=== PATIENT | female | born 1995 | race Caucasian/White ===

== ENCOUNTER 2019-07-04 11:04 | Emergency (ER) | payer BC, OTHER ==
[2019-07-04] MEDS ORDERED: diphenhydrAMINE HCL 50 MG/ML VIAL IV ONE (11:27)
[2019-07-04] MEDS ORDERED: PROCHLORPERAZINE INJ 10 MG/2 ML VIAL IV ONE (11:27)
[2019-07-04] MEDS ORDERED: SODIUM CHLORIDE 0.9% 1000ML 1,000 ML IVS ONE (11:27)
[2019-07-04] MEDS ORDERED: DEXAMETHASONE INJ 10 MG/ML VIAL IV ONE (11:27)
[2019-07-04 12:06] VITALS: TEMP 99.2
--- NOTE | 2019-07-04 12:40 | ED.PDOC ---
History of Present Illness - General Chief Complaint: Headache Stated Complaint: migraine/vomiting Time Seen by Provider: 07/04/19 11:13 Source: patient, RN notes reviewed, Vital Signs reviewed, RN/MD Exam Limitations: no limitations - History of Present Illness Initial Comments: Patient is a 23 yo F with hx of migraines coming in with headache x 4-6 days. She denies any fevers, chills, vision changes, weakness, or numbness. She states that she took her medication for migraines without any relief today. She was nauseated today but did not have resolution with Phenegran. She states that the headache has been gradual in onset and not maximal in intensity upon onset. She notes that this feels like her previous migraines. Timing/Duration: 1 week Quality: moderate, constant, pressure Head Injury Location: global Recent Head Trauma: chronic headaches Allergies/Adverse Reactions: Allergies Ceftriaxone [From Rocephin] Allergy (Verified 07/04/19 12:02) Tramadol Allergy (Verified 07/04/19 12:02) Review of Systems - Review of Systems Constitutional: Denies: chills, fever, weakness EENTM: Denies: eye pain, blurred vision, tearing, double vision Respiratory: Denies: cough, short of breath Cardiology: Denies: chest pain Gastrointestinal/Abdominal: States: nausea. Denies: abdominal pain, vomiting Genitourinary: Denies: dysuria Musculoskeletal: Denies: neck pain Skin: Denies: rash Neurological: States: headache. Denies: numbness, paresthesia, weakness Past Medical History (General) - Patient Medical History Hx Asthma: Yes Hx Hypertension: Yes Hx Gastroesophageal Reflux: Yes Surgical History: appendectomy, other - Vaccination History Hx Tetanus, Diphtheria Vaccination: Yes Hx Influenza Vaccination: No Hx Pneumococcal Vaccination: No Family Medical History - Family History Father Hx Family Cancer: Yes Physical Exam - Physical Exam General Appearance: Alert, Comfortable, No apparent distress, Well Developed, Well Groomed, Well Hydrated, Well Nourished Eyes, Ears, Nose, Throat Exam: PERRL/EOMI Neck: non-tender, full range of motion, supple, normal inspection, trachea midline Cardiovascular/Chest: normal peripheral pulses, regular rate, rhythm, no edema, no gallop, no JVD, no murmur Respiratory: lungs clear, normal breath sounds, no respiratory distress, no accessory muscle use Gastrointestinal/Abdominal: normal bowel sounds, non tender, soft, no organomegaly, no pulsatile mass Extremity: normal range of motion Mental Status: alert, oriented x 3 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 Patient will be re-evaluated after treatment 07/04/19 12:45 Patient feeling better. She will be discharged home with plans for outpatient follow-up. Patient presents for evaluation of headache. This feels similar to her previous migraines. This headache was not maximal in intensity upon onset. She denies any weakness or vision changes. She has no focal neurologic deficits on examination. She was given a mgiraine cocktail with complete resolution. She denies any chance that she could be and is not sexually active. Therefore, she was also given Decadron to prevent rebound headache. She will be discharged home with plans for outpatient follow-up. Departure - Departure Clinical Impression: Migraine Qualifiers: Migraine type: without aura Status migrainosus presence: without status migrainosus Intractability: not intractable Qualified Code(s): G43.009 - Migraine without aura, not intractable, without status migrainosus Time of Disposition: 12:39 Disposition: Discharge to Home or Self Care Condition: Good Departure Forms: ED Discharge - Pt. Copy, Patient Portal Self Enrollment Instructions: DI for Headache Diet: resume usual diet Activity: increase activity as tolerated Comments: Mahin Sousa D.O. Ana Luisa #[phone]
[2019-07-04 12:53] VITALS: BP 121/77; O2SAT 99
== END 2019-07-04 13:25 | disposition home or self-care (01) ==
LOC: ER 11:04
DX: G43.009 Migraine without aura, not intractable, without status migrainosus (principal); J45.909 Unspecified asthma, uncomplicated; I10 Essential (primary) hypertension; K21.9 Gastro-esophageal reflux disease without esophagitis; Z88.1 Allergy status to other antibiotic agents; Z88.5 Allergy status to narcotic agent
CPT/HCPCS: J0780; J1100; J1200; J7030

== ENCOUNTER 2019-07-22 09:42 | Emergency (ER) | payer BC, OTHER ==
[2019-07-22] MEDS ORDERED: SODIUM CHLORIDE 0.9% 1000ML 1,000 ML IVS ONE (10:02)
[2019-07-22] MEDS ORDERED: ONDANSETRON INJ 4 MG/2 ML VIAL IV ONE (10:02)
[2019-07-22] MEDS ORDERED: FAMOTIDINE IV PREMIX 20 MG in PREMIX BAG 1 BAG IVPB ONE (10:02)
--- NOTE | 2019-07-22 10:27 | ED.PDOC ---
History of Present Illness - General Chief Complaint: Abdominal Pain Time Seen by Provider: 07/22/19 10:00 Information Source: patient, RN notes reviewed, Vital Signs reviewed, family Exam Limitations: no limitations - History of Present Illness Initial Comments: Reports history of anxiety on Xanax. Abdominal Pain Onset Location: generalized abdomen Pain Radiation: flank Quality: moderate Timing/Duration: 4-6 hours Improving Factors: nothing Worsening Factors: nothing Associated Symptoms: back pain, chest pain, diarrhea, nausea/vomiting, shortness of breath Review of Systems - Review of Systems Constitutional: States: no symptoms reported EENTM: States: no symptoms reported Respiratory: States: see HPI Cardiology: States: see HPI Gastrointestinal/Abdominal: States: see HPI Genitourinary: States: no symptoms reported Musculoskeletal: States: no symptoms reported Skin: States: no symptoms reported Neurological: States: no symptoms reported Hematologic/Lymphatic: States: no symptoms reported Past Medical History (General) - Patient Medical History Hx Asthma: Yes Hx Hypertension: Yes Hx Gastroesophageal Reflux: Yes - Vaccination History Hx Tetanus, Diphtheria Vaccination: Yes Hx Influenza Vaccination: No Hx Pneumococcal Vaccination: No Family Medical History - Family History Father Hx Family Cancer: Yes Physical Exam - Physical Exam General Appearance: Alert, Anxious Eyes, Ears, Nose, Throat Exam: normal ENT inspection Neck: full range of motion Respiratory: chest non-tender, lungs clear Cardiovascular/Chest: normal peripheral pulses, regular rate, rhythm Peripheral Pulses: No deficit Gastrointestinal/Abdominal: normal bowel sounds, non tender, soft, no organomegaly Back Exam: normal inspection Extremity: normal range of motion 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 We reviewed her CXR, trop, Ddimer, EKG ruling out PE and ACS. Her labs were remarkable for hypokalemia and hematuria. We discussed that given her normal WBC, normal VS, and improving pain after zofran, pepcid, fluids, to hold off on further imaging. She agreed to be discharged with PCP follow up and ER precautions given for severe pain, fever, distress. - EKG/XRAY/CT EKG: Sinus, no ST T wave changes Departure - Departure Clinical Impression: Chest pain, Abdominal pain, Hypokalemia, Hematuria Time of Disposition: 11:59 Disposition: Discharge to Home or Self Care Condition: Fair Departure Forms: ED Discharge - Pt. Copy, Patient Portal Self Enrollment Instructions: DI for Abdominal Pain-Adult Diet: resume usual diet Activity: increase activity as tolerated Prescriptions: Ondansetron Odt [Zofran ODT] 4 mg PO Q6HR 10 Days #20 tab Home Medications: Ambulatory Orders Ondansetron Odt [Zofran ODT] 4 mg PO Q6HR 10 Days #20 tab 07/22/19
[2019-07-22] MEDS ORDERED: FAMOTIDINE IV PREMIX 50 ML IVPB ONE (10:49)
[2019-07-22] MEDS ORDERED: POTASSIUM CHLORIDE 20 MEQ TAB PO ONE (11:14)
[2019-07-22] MEDS ORDERED: KETOROLAC TROMETHAMINE INJ 30 MG/ML VIAL IV ONE (11:26)
--- NOTE | 2019-07-22 11:47 | RAD ---
EXAM DESCRIPTION: Chest,1 View CLINICAL HISTORY: 23 years Female, chest pain COMPARISON: None. TECHNIQUE: Single frontal view of the chest. IMPRESSION: Normal size cardiac silhouette. No lobar or masslike consolidation. No pleural effusion or pneumothorax. Chronic right rib fractures. Electronically signed by: Alvarado Phillips MD 07/22/2019 11:45 AM CDT
[2019-07-22 16:21] VITALS: BP 119/76; TEMP 97; O2SAT 93
== END 2019-07-22 12:50 | disposition home or self-care (01) ==
LOC: ER 09:42
DX: R07.9 Chest pain, unspecified (principal); R10.9 Unspecified abdominal pain; E87.6 Hypokalemia; R31.9 Hematuria, unspecified; R11.2 Nausea with vomiting, unspecified; R19.7 Diarrhea, unspecified; M54.9 Dorsalgia, unspecified; R06.02 Shortness of breath; F41.9 Anxiety disorder, unspecified; J45.909 Unspecified asthma, uncomplicated; I10 Essential (primary) hypertension; K21.9 Gastro-esophageal reflux disease without esophagitis; Z79.899 Other long term (current) drug therapy
CPT/HCPCS: 36415; 71045; 80053; 81001; 84484; 84703; 85025; 85379; 87210; 87491; 87591; 93005; J1885; J2405; J3490; J7030

== ENCOUNTER 2019-08-19 17:51 | Emergency (ER) | payer BC, OTHER ==
[2019-08-19 19:20] VITALS: O2SAT 100
--- NOTE | 2019-08-19 19:27 | RAD ---
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 TECHNIQUE: Frontal, lateral and oblique views of the fingers of the left hand. COMPARISON: No relevant prior studies available. FINDINGS: BONES/JOINTS: No acute fracture seen. Normal bony alignment. SOFT TISSUES: No acute soft tissue abnormality identified. No radiopaque foreign body seen. IMPRESSION: - No acute fracture seen. Thank you for allowing us to participate in the care of this patient. Electronically signed by: Lv Osuna MD 08/19/2019 7:26 PM [facility]
--- NOTE | 2019-08-19 19:39 | ED.PDOC ---
History of Present Illness - General Chief Complaint: Upper Extremity Injury Stated Complaint: Injury to L ring finger Time Seen by Provider: 08/19/19 19:29 Source: patient Exam Limitations: no limitations - History of Present Illness Initial Comments: 23 yo F who presents for L ring and pinky finger pain s/p getting them caught in a baking mixer. She thought she had unplugged it however she had not and when trying to take the mixers off it turned on. Denies pain or injury elsewhere. Denies weakness, numbness. Allergies/Adverse Reactions: Allergies Ceftriaxone [From Rocephin] Allergy (Verified 08/19/19 19:20) Tramadol Allergy (Verified 08/19/19 19:20) Home Medications: Ambulatory Orders Ondansetron Odt [Zofran ODT] 4 mg PO Q6HR 10 Days #20 tab 07/22/19 Review of Systems - Review of Systems Musculoskeletal: States: other - L RF and LF pain Neurological: Denies: numbness, weakness Past Medical History (General) - Patient Medical History Hx Stroke: No Hx Asthma: Yes Hx Congestive Heart Failure: No Hx Hypertension: Yes Hx Diabetes: No Hx Gastroesophageal Reflux: Yes Hx MRSA: No - Vaccination History Hx Tetanus, Diphtheria Vaccination: Yes Hx Influenza Vaccination: No Hx Pneumococcal Vaccination: No - Social History Hx Tobacco Use: No Hx Alcohol Use: Yes - Occasional use - Female History Patient is a Female of Child Bearing Age (10 -59 yrs old): Yes Patient : No Family Medical History - Family History Father Living Status: Still Living Hx Family Cancer: Yes Physical Exam - Physical Exam General Appearance: Alert, No apparent distress, Well Developed, Well Nourished Hand Exam: normal inspection - L LF and RF with mild TTP and decreased ROM 2/2 pain. No swelling, deformity, ecchymosis, nail involvement. 2+ pulses, cap refill <2sec, NVID. Neuro/Tendon: normal sensation, normal motor functions, normal tendon functions Mental Status: alert, oriented x 3 Skin Exam: normal color, warm/dry Progress - Progress Progress: I have explained and reviewed all results with the pt. I explained that emergent conditions may arise and to return to the ER for new, worsening, or any persistent conditions. I've explained the importance of f/u for recheck. All questions and concerns addressed at this time. Pt understands and agrees with plan. Pt well appearing, NAD, is stable for discharge. 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 TECHNIQUE: Frontal, lateral and oblique views of the fingers of the left hand. COMPARISON: No relevant prior studies available. FINDINGS: BONES/JOINTS: No acute fracture seen. Normal bony alignment. SOFT TISSUES: No acute soft tissue abnormality identified. No radiopaque foreign body seen. IMPRESSION: - No acute fracture seen. Thank you for allowing us to participate in the care of this patient. Electronically signed by: Lv Osuna MD 08/19/2019 7:26 PM SAMPLE PROCESSOR Departure - Departure Clinical Impression: Finger sprain Qualifiers: Encounter type: initial encounter Finger: unspecified finger Qualified Code(s): S63.619A - Unspecified sprain of unspecified finger, initial encounter Time of Disposition: 19:40 Disposition: Discharge to Home or Self Care Health Concerns: Condition: stable Departure Forms: ED Discharge - Pt. Copy, Patient Portal Self Enrollment Instructions: DI for Finger Sprain Home Medications: Ambulatory Orders Ondansetron Odt [Zofran ODT] 4 mg PO Q6HR 10 Days #20 tab 07/22/19 Comments: Follow up: [facility] As needed, if symptoms worsen. Your Primary Care Physician Make appointment, two days, for follow up
[2019-08-19 19:51] VITALS: BP 134/81; TEMP 98
== END 2019-08-19 19:50 | disposition home or self-care (01) ==
LOC: ER 17:51
DX: S63.619A Unspecified sprain of unspecified finger, initial encounter (principal); I10 Essential (primary) hypertension; K21.9 Gastro-esophageal reflux disease without esophagitis; J45.909 Unspecified asthma, uncomplicated; W29.0XXA Contact with powered kitchen appliance, initial encounter; Y92.9 Unspecified place or not applicable; Z88.1 Allergy status to other antibiotic agents; Z88.5 Allergy status to narcotic agent

== ENCOUNTER 2019-10-11 03:44 | Emergency (ER) | payer BC, OTHER ==
--- NOTE | 2019-10-11 04:00 | ED.PDOC ---
History of Present Illness - General Chief Complaint: Fever Time Seen by Provider: 10/11/19 03:53 Source: patient, RN notes reviewed, Vital Signs reviewed Exam Limitations: no limitations Additional Information: this is a 23-year-old who presents to the emergency Depart with complaints of fever for the past 5 days. She was diagnosed with the flu and started on Tamiflu. She reports chills and productive cough as well as sore throat. She did not have a flu shot this year.she denies any neurologic symptomatology. She has not had any diarrhea but has had some vomiting. She has 2 young children at home as well. Review of Systems - Review of Systems Constitutional: States: chills, fever, malaise EENTM: States: throat pain Respiratory: States: cough. Denies: short of breath, wheezing Cardiology: States: no symptoms reported Gastrointestinal/Abdominal: States: nausea, vomiting. Denies: abdominal pain, constipation, diarrhea Genitourinary: States: no symptoms reported Musculoskeletal: States: muscle pain Skin: States: no symptoms reported Neurological: States: headache. Denies: numbness, paresthesia, seizure Endocrine: States: no symptoms reported All other Systems: Reviewed and Negative Past Medical History (General) - Patient Medical History Hx Stroke: No Hx Asthma: Yes Hx Congestive Heart Failure: No Hx Hypertension: Yes Hx Diabetes: No Hx Gastroesophageal Reflux: Yes Hx MRSA: No - Vaccination History Hx Tetanus, Diphtheria Vaccination: Yes Hx Influenza Vaccination: No Hx Pneumococcal Vaccination: No - Social History Hx Tobacco Use: No Hx Alcohol Use: Yes - Occasional use - Female History Patient : No Family Medical History - Family History Father Living Status: Still Living Hx Family Cancer: Yes Physical Exam - Physical Exam General Appearance: Alert, No apparent distress, Ill Appearing Eye Exam: bilateral normal ENT Exam: nasal congestion, nasal drainage, pharyngeal erythema, other - honey crusted lesions at nares Neck: non-tender, full range of motion, supple, normal inspection, trachea midline Respiratory: chest non-tender, lungs clear, normal breath sounds, no respiratory distress, no accessory muscle use, respiratory distress Cardiovascular/Chest: normal peripheral pulses, no edema, no gallop, no JVD, no murmur, JVD, tachycardia Gastrointestinal/Abdominal: normal bowel sounds, non tender, soft, no organomegaly, no pulsatile mass Extremity: normal range of motion, non-tender, normal inspection, no pedal edema, no calf tenderness 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 Patient will have laboratory evaluation performed. We will hydrate her as well. We'll go ahead and give anti-emetics. We'll treat her headache as well. We'll test her once again for the flu and strep. We'll also check a chest x-ray to make sure that she has not developed pneumonia. 10/11/19 05:22 CXR is wnl. Labs still pending. 10/11/19 05:30 Pt is feeling better. Discussed results. All questions answered. - Results/Orders Results/Orders: Negative flu a and b Departure - Departure Clinical Impression: Impetigo UTI (urinary tract infection) Qualifiers: Urinary tract infection type: acute cystitis Hematuria presence: with hematuria Qualified Code(s): N30.01 - Acute cystitis with hematuria Fever Qualifiers: Fever type: unspecified Qualified Code(s): R50.9 - Fever, unspecified Pharyngitis Qualifiers: Pharyngitis/tonsillitis etiology: unspecified etiology Qualified Code(s): J02.9 - Acute pharyngitis, unspecified Time of Disposition: 05:38 Disposition: Discharge to Home or Self Care Condition: Good Departure Forms: ED Discharge - Pt. Copy, Patient Portal Self Enrollment Instructions: DI for Fever (Symptom) -- Adult Referrals: Jah Vital MD [Primary Care Provider] - 1-2 Weeks Prescriptions: Ciprofloxacin [Cipro] 250 mg PO Q12H #14 tablet Mupirocin 2 % Oint [Bactroban Oint] 1 applic TOP BID 5 Days #10 appli Home Medications: Ambulatory Orders Alprazolam 0.5 mg PO PRN 10/11/19 Ciprofloxacin [Cipro] 250 mg PO Q12H #14 tablet 10/11/19 Mupirocin 2 % Oint [Bactroban Oint] 1 applic TOP BID 5 Days #10 appli 10/11/19 Norethindrone Acetate-Ethinyl [Lo Loestrin Fe 1 mg-10 Mcg / 10 Mcg] 1 tablet PO DAILY 10/11/19 Additional Instructions: take medications as prescribed. Use Bactroban ointment within the nares twice a day. Take supplemental potassium for the next three days. Encouraged fluid hydration. If any worsening symptoms return to ER or follow up with PCP.
[2019-10-11] MEDS ORDERED: KETOROLAC TROMETHAMINE INJ 30 MG/ML VIAL IV ONE (04:03)
[2019-10-11] MEDS ORDERED: SODIUM CHLORIDE 0.9% 1000ML 1,000 ML IVS ONE (04:03)
[2019-10-11] MEDS ORDERED: ONDANSETRON INJ 4 MG/2 ML VIAL IV ONE (04:03)
[2019-10-11] MEDS ORDERED: CIPROFLOXACIN 500 MG TAB PO ONE (05:24)
[2019-10-11] MEDS ORDERED: POTASSIUM CHLORIDE 20 MEQ TAB PO ONE (05:36)
[2019-10-11 05:49] VITALS: BP 138/86; TEMP 98.9; O2SAT 100
--- NOTE | 2019-10-11 06:19 | RAD ---
EXAM: Single view chest. INDICATION: Fever, cough. COMPARISON: Chest x-ray: 07/22/2019. FINDINGS: Cardiac silhouette: Unremarkable. Yulia: Unremarkable. Lobar consolidation: None. Pleural effusion: None. Pneumothorax: None. Other: None. Bones: Old healed right-sided rib fracture is noted. Other: None. IMPRESSION: 1. No acute cardiopulmonary process. Electronically signed by: Jack Vargas MD 10/11/2019 6:14 AM [facility]
== END 2019-10-11 05:49 | disposition home or self-care (01) ==
LOC: ER 03:44
DX: N30.01 Acute cystitis with hematuria (principal); L01.00 Impetigo, unspecified; J02.9 Acute pharyngitis, unspecified; R11.2 Nausea with vomiting, unspecified; K21.9 Gastro-esophageal reflux disease without esophagitis; J45.909 Unspecified asthma, uncomplicated; I10 Essential (primary) hypertension
CPT/HCPCS: 71045; 80053; 81001; 81025; 83605; 85025; 87040; 87070; 87086; 87502; 87880; J1885; J2405; J7030

== ENCOUNTER → 2019-11-02 | Outpatient (CLI) | payer BC, OTHER | LOC: GMA MATASK 14:26 | PROVIDERS: ATTEND Family Medicine | DX: G43.109 Migraine with aura, not intractable, without status migrainosus (principal) ==

== ENCOUNTER → 2019-12-16 | Outpatient (CLI) | payer BC, OTHER ==
--- NOTE | 2019-12-16 14:07 | US ---
EXAM DESCRIPTION: Pelvic,Non-OB: Ultrasound. 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 TECHNIQUE: Transcutaneous scanning through the urine filled bladder. Endovaginal scanning. Loco-scale and Doppler modes. FINDINGS: Uterus 6.7 x 4.7 x 3.4 cm. 55.5 mL. Endometrium 2.3 mm.. Myometrium heterogeneous. Uterus not retroverted. Cervix unremarkable. Cul-de-sac: Small amount of free fluid.. Right ovary 2.6 x 1.8 x 1.2 cm. 2.9 mL. Normal color Doppler vascularity. Small follicles but no cysts. No adnexal mass or free fluid. Left ovary 2.4 x 0.9 x 0.8 cm. Almost 1 mL. Normal color Doppler vascularity. No follicles or cysts. No adnexal mass or free fluid. IMPRESSION: 1. Small amount of fluid in the cul-de-sac. Uterus and ovaries normal in size position and vascularity. Electronically signed by: Marck Dowd MD 12/16/2019 2:05 PM CDT
== END ==
LOC: US 12:44
PROVIDERS: ATTEND Physician Assistant
DX: R18.8 Other ascites (principal)

== ENCOUNTER 2019-12-27 10:44 | Emergency (ER) | payer BC, OTHER ==
[2019-12-27] MEDS ORDERED: SODIUM CHLORIDE 0.9% (FLUSH) 10 ML SYG IV PRN (11:02)
[2019-12-27] MEDS ORDERED: SODIUM CHLORIDE 0.9% 1000ML 1,000 ML IVS PRN (11:02)
[2019-12-27] MEDS ORDERED: ONDANSETRON INJ 4 MG/2 ML VIAL IV ONE (11:02)
[2019-12-27] MEDS ORDERED: DICYCLOMINE HCL INJ 20 MG/2 ML AMP IM ONE (11:03)
[2019-12-27] MEDS ORDERED: MORPHINE SULFATE INJ 10 MG/ML VIAL IV ONE (11:04)
--- NOTE | 2019-12-27 12:40 | CT ---
EXAM DESCRIPTION: Abdomen/Pelvis w/Contrast CLINICAL HISTORY: 24 years Female lower abdominal pain COMPARISON: None. TECHNIQUE: Contiguous axial images obtained through the abdomen and pelvis following IV contrast. Reformatted images obtained. This exam was performed according to our department optimization program which includes automated exposure control, adjustment of the mA and/or kv according to patient size and/or use of iterative reconstruction technique. FINDINGS: The liver appears unremarkable. Spleen is within normal limits. There appears to be a minute cyst in the superior pole of the spleen. Pancreas is unremarkable. No adrenal masses. The kidneys appear unremarkable. No hydronephrosis. The gallbladder is visualized. No aneurysmal dilatation of the aorta. No bowel obstruction. The appendix is absent. Trace free fluid which is nonspecific Question incomplete distention of the colon and loops of distal small bowel versus early enterocolitis. Recommend clinical correlation. This finding can also be seen with incomplete distention. IMPRESSION: Question mild wall thickening in the colon and in some loops of small bowel within the pelvis versus incomplete distention. Possibility of early enterocolitis is not excluded. Recommend clinical correlation with patient's symptoms. Trace fluid in the pelvis nonspecific in a patient of this age Electronically signed by: Adelita Maharaj MD 12/27/2019 12:39 PM CDT
--- NOTE | 2019-12-27 12:46 | ED.PDOC ---
History of Present Illness - General Chief Complaint: Abdominal Pain Stated Complaint: left sided abd pain Time Seen by Provider: 12/27/19 11:02 - History of Present Illness Initial Comments: c/o lower abdominal pain with intermittent vaginal bleeding since 10 days , went to PCP did sonogram and was told that she has ruptured ovarian cyst on the L . Since yesterday pain is getting worse , its sharp non radiating associated with some nausea , no fever or chills Review of Systems - Review of Systems Constitutional: States: no symptoms reported EENTM: States: no symptoms reported Respiratory: States: no symptoms reported Cardiology: States: no symptoms reported Gastrointestinal/Abdominal: States: see HPI Genitourinary: States: no symptoms reported Musculoskeletal: States: no symptoms reported Skin: States: no symptoms reported Neurological: States: no symptoms reported Endocrine: States: no symptoms reported Hematologic/Lymphatic: States: no symptoms reported Past Medical History (General) - Patient Medical History Hx Seizures: No Hx Stroke: No Hx Dementia: No Hx Asthma: Yes Hx of COPD: No Hx Cardiac Disorders: No Hx Congestive Heart Failure: No Hx Pacemaker: No Hx Hypertension: Yes Hx Diabetes: No Hx Gastroesophageal Reflux: Yes Hx Renal Disease: No Hx Cancer: No Hx of HIV: No Hx Hepatitis C: No Hx MRSA: No Surgical History: appendectomy - Vaccination History Hx Tetanus, Diphtheria Vaccination: Yes Hx Influenza Vaccination: No Hx Pneumococcal Vaccination: No - Social History Hx Tobacco Use: No Hx Alcohol Use: Yes - Occasional use - Female History Patient is a Female of Child Bearing Age (10 -59 yrs old): Yes - on control Patient : No Family Medical History - Family History Father Living Status: Still Living Hx Family Cancer: Yes Physical Exam - Physical Exam General Appearance: Alert, Comfortable Eyes, Ears, Nose, Throat Exam: PERRL/EOMI Neck: non-tender, full range of motion, supple, normal inspection Respiratory: chest non-tender, lungs clear, normal breath sounds, no respiratory distress, no accessory muscle use Cardiovascular/Chest: regular rate, rhythm, no edema, no gallop, no JVD, no murmur Gastrointestinal/Abdominal: soft, tenderness - in pelvic area Back Exam: normal inspection, no CVA tenderness, no vertebral tenderness Extremity: normal range of motion, non-tender, normal inspection, no pedal edema Neurologic: no motor/sensory deficits, alert, normal mood/affect, oriented x 3 Skin Exam: normal color, warm/dry Lymphatic: no adenopathy Progress - Results/Orders Results/Orders: 12/27/19 11:02 Sodium Chloride 0.9% (Flush) [Saline Flush Syringe] 10 ml IV PRN PRN Sodium Chloride 0.9% 1000ML [Ns 1000 ml] 1,000 ml IVS .QD 12/27/19 11:03 Hold Metformin x 48Hrs [id number] Laboratory Results WBC 6.2 K/mm3 (4.8-10.8) 12/27/19 11:21 RBC 4.94 M/mm3 (4.20-5.40) 12/27/19 11:21 Hgb 13.2 gm/dL (12.0-16.0) 12/27/19 11: Hct 39.8 % (36.0-47.0) 12/27/19 11:21 MCV 80.6 fl (81.0-99.0) L 12/27/19 11: MCH 26.7 pg (27.0-31.0) L 12/27/19 11:21 MCHC 33.1 g/dL (33.0-37.0) 12/27/19 11: RDW 14.6 % (11.5-14.5) H 12/27/19 11:21 Plt Count 208 K/mm3 (130-400) 12/27/19 11:21 MPV 8.5 fl (7.40-10.4) 12/27/19 11:21 Absolute Neuts (auto) 4.70 K/uL (1.8-6.8) 12/27/19 11: Absolute Lymphs (auto) 1.10 K/uL (1.0-3.4) 12/27/19 11:21 Absolute Monos (auto) 0.30 K/uL (0.2-0.8) 12/27/19 11: Absolute Eos (auto) 0.00 K/uL (0.0-0.4) 12/27/19 11: Absolute Basos (auto) 0.00 K/uL (0.0-0.1) 12/27/19 11:21 Neutrophils % 77.0 % (42.0-78.0) 12/27/19 11:21 Lymphocytes % 17.9 % (20.0-50.0) L 12/27/19 11:21 Monocytes % 4.7 % (2.0-9.0) 12/27/19 11:21 Eosinophils % 0.1 % (1.0-5.0) L 12/27/19 11:21 Basophils % 0.3 % (0.0-2.0) 12/27/19 11:21 Sodium 139 mmol/L (135-145) 12/27/19 11:21 Potassium 3.8 mmol/L (3.6-5.0) 12/27/19 11:21 Chloride 109 mmol/L (101-111) 12/27/19 11:21 Carbon Dioxide 21 mmol/L (21-31) 12/27/19 11:21 Anion Gap 12.8 (12-18) 12/27/19 11:21 BUN 11 mg/dL (7-18) 12/27/19 11:21 Creatinine 0.60 mg/dL (0.6-1.3) 12/27/19 11:21 BUN/Creatinine Ratio 18.3 (10-20) 12/27/19 11:21 Random Glucose 96 mg/dL (70-105) 12/27/19 11:21 Serum Osmolality 276.8 mOsm/L (275-295) 12/27/19 11:21 Calcium 9.1 mg/dL (8.4-10.2) 12/27/19 11:21 Total Bilirubin 0.5 mg/dL (0.2-1.0) 12/27/19 11:21 Direct Bilirubin 0.1 mg/dL (0-0.2) 12/27/19 11:21 Indirect Bilirubin 0.4 mg/dL (0.2-0.8) 12/27/19 11:21 AST 19 IU/L (10-42) 12/27/19 11:21 ALT 13 IU/L (10-60) 12/27/19 11:21 Alkaline Phosphatase 34 IU/L (42-121) L 12/27/19 11:21 Serum Total Protein 7.0 gm/dL (6.4-8.2) 12/27/19 11:21 Albumin 4.2 g/dl (3.2-5.5) 12/27/19 11:21 Lipase 46 U/L (22-51) 12/27/19 11:21 Serum HCG, Qual Negative (NEGATIVE) 12/27/19 11:21 Urine Color Yellow (Yellow) 12/27/19 11:06 Urine Appearance Clear (Clear) 12/27/19 11:06 Urine pH 6.0 (4.5-7.8) 12/27/19 11:06 Ur Specific [place] >= 1.030 (1.005-1.030) 12/27/19 11:06 Urine Protein 30 mg/dL 12/27/19 11:06 Urine Glucose (UA) Negative mg/dL (Negative) 12/27/19 11:06 Urine Ketones Trace mg/dL (NEGATIVE) 12/27/19 11:06 Urine Blood Negative (Negative) 12/27/19 11:06 Urine Nitrite Negative 12/27/19 11:06 Urine Bilirubin Negative (NEGATIVE) 12/27/19 11:06 Urine Urobilinogen 0.2 mg/dL (0.2-1.0) 12/27/19 11:06 Ur Leukocyte Esterase Negative (Negative) 12/27/19 11:06 Urine RBC 0 /hpf 12/27/19 11:06 Urine WBC 0 /hpf 12/27/19 11:06 Ur Epithelial Cells 5-10 /hpf 12/27/19 11:06 Urine Bacteria Rare 12/27/19 11:06 Departure - Departure Clinical Impression: Abdominal pain, Pelvic pain Time of Disposition: 12:47 Disposition: Discharge to Home or Self Care Condition: Good Departure Forms: ED Discharge - Pt. Copy, Patient Portal Self Enrollment Instructions: DI for Abdominal Pain-Adult Diet: resume usual diet Activity: increase activity as tolerated, walking as tolerated Referrals: Jah Vital MD [Primary Care Provider] - 1-2 Weeks Prescriptions: Dicyclomine HCl [Bentyl] 20 mg PO Q6H #12 tab Ondansetron Tab [Zofran Tab] 4 mg PO TID #12 tab Home Medications: Ambulatory Orders RX: Norethindrone Acetate-Ethinyl [Lo Loestrin Fe 1 mg-10 Mcg / 10 Mcg] 1 tablet PO DAILY 10/11/19 Dicyclomine HCl [Bentyl] 20 mg PO Q6H #12 tab 12/27/19 Ondansetron Tab [Zofran Tab] 4 mg PO TID #12 tab 12/27/19 Additional Instructions: Return to ER if symptoms gets worse
[2019-12-27 13:26] VITALS: O2SAT 100
[2019-12-27 13:56] VITALS: BP 126/93; TEMP 97.1
== END 2019-12-27 13:56 | disposition home or self-care (01) ==
LOC: ER 10:44
DX: R10.2 Pelvic and perineal pain (principal); R10.30 Lower abdominal pain, unspecified; K21.9 Gastro-esophageal reflux disease without esophagitis; I10 Essential (primary) hypertension; J45.909 Unspecified asthma, uncomplicated; Z90.49 Acquired absence of other specified parts of digestive tract; Z87.42 Personal history of other diseases of the female genital tract
CPT/HCPCS: 36415; 74177; 80048; 80076; 81001; 83690; 84703; 85025; J0500; J2270; J2405; J7030

== ENCOUNTER 2020-06-05 23:27 | Emergency (ER) | payer BC, OTHER ==
[2020-06-05 23:43] VITALS: O2SAT 99
[2020-06-05] MEDS ORDERED: ALUM & MAG HYDROX-SIMETHICONE 30 ML, LIDOCAINE VISCOUS 2% 15 ML PO ONE ×2 (23:52)
[2020-06-05] MEDS ORDERED: ONDANSETRON ODT 8 MG TAB SL ONE (23:52)
--- NOTE | 2020-06-06 00:03 | ED.PDOC ---
History of Present Illness - General Chief Complaint: Problem Stated Complaint: back pain, low abd, pain to void Time Seen by Provider: 06/05/20 23:40 Source: patient Exam Limitations: no limitations - History of Present Illness Initial Comments: The patient is a 24-year-old female presents emergency room secondary to stomach upset today. Patient was started on Bactrim 3 days ago to continue her course of treatment for her urinary tract infection and pyelonephritis. The patient had already completed 9 days of an IV and then oral antibiotic prior to that. The patient saw her primary care doctor had a urinalysis done at that time and started the antibiotic. We do actually have the urine culture results here today and it does show that she does have a urinary tract infection with E. coli that is resistant to Bactrim. It does show sensitivities to cephalosporins, particularly third-generation cephalosporins. The patient does have some history of mild chronic GI upset. The patient is still having some mild frequency and mild abdominal cramping. No blood or bile in the vomitus. No real focal abdominal pain. She reports that the pyelonephritis was in the right kidney during her hospitalization. The patient had apparently tolerated Keflex well even though she reports that she had a Rocephin allergy. Timing/Duration: unsure Severity: moderate Improving Factors: nothing Worsening Factors: nothing Associated Symptoms: malaise, nausea/vomiting Allergies/Adverse Reactions: Allergies Ceftriaxone [From Rocephin] Allergy (Verified 10/11/19 04:07) Hydrocodone Allergy (Verified 10/11/19 04:07) Tramadol Allergy (Verified 10/11/19 04:07) Home Medications: Ambulatory Orders Norethindrone Acetate-Ethinyl [Lo Loestrin Fe 1 mg-10 Mcg / 10 Mcg] 1 tablet PO DAILY 10/11/19 Dicyclomine HCl [Bentyl] 20 mg PO Q6H #12 tab 12/27/19 Ondansetron Tab [Zofran Tab] 4 mg PO TID #12 tab 12/27/19 Cefixime [Suprax] 400 mg PO DAILY #10 cap 06/06/20 Review of Systems - Review of Systems Constitutional: States: malaise EENTM: States: no symptoms reported Respiratory: States: no symptoms reported Cardiology: States: no symptoms reported Gastrointestinal/Abdominal: States: no symptoms reported Genitourinary: States: see HPI Musculoskeletal: States: no symptoms reported Skin: States: no symptoms reported Neurological: States: no symptoms reported Endocrine: States: no symptoms reported All other Systems: No Change from Baseline Past Medical History (General) - Patient Medical History Hx Seizures: No Hx Stroke: No Hx Dementia: No Hx Asthma: Yes Hx of COPD: No Hx Cardiac Disorders: No Hx Congestive Heart Failure: No Hx Pacemaker: No Hx Hypertension: Yes Hx Diabetes: No Hx Gastroesophageal Reflux: Yes Hx Renal Disease: No Hx Cancer: No Hx of HIV: No Hx Hepatitis C: No Hx MRSA: No Surgical History: appendectomy, tonsillectomy - Vaccination History Hx Tetanus, Diphtheria Vaccination: Yes Hx Influenza Vaccination: No Hx Pneumococcal Vaccination: No - Social History Hx Tobacco Use: No Hx Alcohol Use: Yes - Occasional use - Female History Patient : No Family Medical History - Family History Father Living Status: Still Living Hx Family Cancer: Yes Physical Exam - Physical Exam General Appearance: Alert, No apparent distress Eye Exam: bilateral normal Ears, Nose, Throat: hearing grossly normal, normal pharynx Neck: full range of motion Respiratory: lungs clear, normal breath sounds, no respiratory distress, no accessory muscle use Cardiovascular/Chest: normal peripheral pulses, regular rate, rhythm, no edema Peripheral Pulses: radial,right: 2+, radial,left: 2+ Gastrointestinal/Abdominal: non tender, soft Rectal Exam: deferred Back Exam: no CVA tenderness, no vertebral tenderness Extremity: normal range of motion, non-tender, normal inspection, no pedal edema, normal capillary refill Neurologic: cell tester II-XII nml as tested, alert, normal mood/affect, oriented x 3 Skin Exam: normal color Comments: Vital Signs - 24 hr 06/05/20 23:35 Temperature 98.4 F Pulse Rate [ 89 left] Respiratory 18 Rate Blood Pressure 127/81 [Left Arm] O2 Sat by Pulse 99 Oximetry Progress - Progress Progress: 06/06/20 00:05 The patient is a 24-year-old female presented emergency room secondary to GI upset likely due to the Bactrim. The urinary tract infection is growing out E. coli resistant to the Bactrim so this medication will be discontinued. Based upon sensitivities, the patient is going to be placed on Suprax 400 mg daily for the next 10 days. Additionally she will be written for Zofran for as needed use to control any nausea or vomiting and Carafate for the next week or so to help reduce stomach upset. She does need to avoid taking the Suprax with the other 2 medications. She can take it with a little bit of food to avoid stomach upset. She needs to keep herself very well-hydrated as she is currently mildly dehydrated. I do want her to follow back up with her primary care doctor in a few days for repeat evaluation. ER warnings are given for any obvious worsening. edil [place]apleton [id number] - Results/Orders Results/Orders: Laboratory Tests 06/05/20 23:35 Urine Color Yellow Urine Appearance Sl cloudy Urine pH 5.5 Ur Specific [place] >= 1.030 Urine Protein 30 Urine Glucose (UA) Negative Urine Ketones 15 H Urine Blood Trace-intact H Urine Nitrite Positive H Urine Bilirubin Small H Urine Urobilinogen 0.2 Ur Leukocyte Esterase Trace H Urine RBC 3-5 H Urine WBC 5-10 H Ur Epithelial Cells 1-3 Urine Bacteria 1+ Urine Mucus Trace Urine culture from Dr. Vital's office shows E. coli sensitive to third- generation cephalosporins, fourth generation cephalosporin, imipenem, gentamicin, ertapenem, Macrobid and tobramycin. It is resistant to fluoroquinolones, Bactrim and penicillins. Departure - Departure Clinical Impression: Pyelonephritis Gastritis Qualifiers: Gastritis type: unspecified gastritis Chronicity: acute Gastritis bleeding: without bleeding Qualified Code(s): K29.00 - Acute gastritis without bleeding Disposition: Discharge to Home or Self Care Condition: Fair Departure Forms: ED Discharge - Pt. Copy, Patient Portal Self Enrollment Diet: bland diet Activity: increase activity as tolerated Referrals: Jah Vital MD [Primary Care Provider] - 1-2 Weeks Prescriptions: Cefixime [Suprax] 400 mg PO DAILY #10 cap Home Medications: Ambulatory Orders Norethindrone Acetate-Ethinyl [Lo Loestrin Fe 1 mg-10 Mcg / 10 Mcg] 1 tablet PO DAILY 10/11/19 Dicyclomine HCl [Bentyl] 20 mg PO Q6H #12 tab 12/27/19 Ondansetron Tab [Zofran Tab] 4 mg PO TID #12 tab 12/27/19 Cefixime [Suprax] 400 mg PO DAILY #10 cap 06/06/20 Additional Instructions: The patient is a 24-year-old female presented emergency room secondary to GI upset likely due to the Bactrim. The urinary tract infection is growing out E. coli resistant to the Bactrim so this medication will be discontinued. Based upon sensitivities, the patient is going to be placed on Suprax 400 mg daily for the next 10 days. Additionally she will be written for Zofran for as needed use to control any nausea or vomiting and Carafate for the next week or so to help reduce stomach upset. She does need to avoid taking the Suprax with the other 2 medications. She can take it with a little bit of food to avoid stomach upset. She needs to keep herself very well-hydrated as she is currently mildly dehydrated. I do want her to follow back up with her primary care doctor in a few days for repeat evaluation. ER warnings are given for any obvious worsening.
[2020-06-06 00:36] VITALS: BP 127/88; TEMP 98.2
== END 2020-06-06 00:36 | disposition home or self-care (01) ==
LOC: ER 23:27
DX: N12 Tubulo-interstitial nephritis, not specified as acute or chronic (principal); K29.00 Acute gastritis without bleeding; K21.9 Gastro-esophageal reflux disease without esophagitis; J45.909 Unspecified asthma, uncomplicated; I10 Essential (primary) hypertension; Z90.49 Acquired absence of other specified parts of digestive tract; Z79.899 Other long term (current) drug therapy; Z88.1 Allergy status to other antibiotic agents; Z88.5 Allergy status to narcotic agent

== ENCOUNTER 2020-06-24 10:27 | Emergency (ER) | payer BC, OTHER ==
--- NOTE | 2020-06-24 11:14 | ED.PDOC ---
History of Present Illness - General Chief Complaint: Headache Stated Complaint: WATSON,vomiting Time Seen by Provider: 06/24/20 11:04 - History of Present Illness Initial Comments: 24 yo F PMH HTN PCOS Chronic Migraines and recent treatment of UTI states 'I have had E. coli in my urine' presents to ED Mother at bedside c/o generalized headache and intermittent nausea vomiting x 2 months. Denies fever cough sob recent travel or contact with covid19. Denies fever chills admits nausea vomiting diarrhea non bilious non bloody denies chest pain sob diaphoresis. No change in diet rest bowel or badder. Has PMD [place] for follow denies drinking or smoking admits FH HTN DM no other c/o today. PPE worn-N95 surgical mask with attached face shield over N95 goggles gloves and face shield over that. Allergies/Adverse Reactions: Allergies Ceftriaxone [From Rocephin] Allergy (Verified 10/11/19 04:07) Hydrocodone Allergy (Verified 10/11/19 04:07) Tramadol Allergy (Verified 10/11/19 04:07) Home Medications: Ambulatory Orders Norethindrone Acetate-Ethinyl [Lo Loestrin Fe 1 mg-10 Mcg / 10 Mcg] 1 tablet PO DAILY 10/11/19 Ondansetron Tab [Zofran Tab] 4 mg PO TID #12 tab 12/27/19 Acetaminophen [Tylenol] 650 mg PO Q6H PRN #30 tab 06/24/20 Ibuprofen 600 mg PO Q6H PRN #20 tab 06/24/20 Ondansetron Tab [Zofran Tab] 4 mg PO TID PRN 5 Days #15 tab 06/24/20 Review of Systems - Review of Systems Constitutional: States: see HPI EENTM: States: see HPI Respiratory: States: see HPI Cardiology: States: see HPI Gastrointestinal/Abdominal: States: see HPI Genitourinary: States: see HPI Musculoskeletal: States: see HPI Skin: States: see HPI Neurological: States: see HPI Endocrine: States: see HPI All other Systems: Reviewed and Negative Past Medical History (General) - Patient Medical History Hx Seizures: No Hx Stroke: No Hx Dementia: No Hx Asthma: Yes Hx of COPD: No Hx Cardiac Disorders: No Hx Congestive Heart Failure: No Hx Pacemaker: No Hx Hypertension: Yes Hx Diabetes: No Hx Gastroesophageal Reflux: Yes Hx Renal Disease: No Hx Cancer: No Hx of HIV: No Hx Hepatitis C: No Hx MRSA: No Surgical History: appendectomy, tonsillectomy - Vaccination History Hx Tetanus, Diphtheria Vaccination: Yes Hx Influenza Vaccination: Yes Hx Pneumococcal Vaccination: No - Social History Hx Tobacco Use: No Hx Alcohol Use: Yes - Occasional use - Female History Patient is a Female of Child Bearing Age (10 -59 yrs old): Yes - on BCP Patient : No Family Medical History - Family History Father Living Status: Still Living Hx Family Cancer: Yes Physical Exam - Physical Exam General Appearance: No apparent distress Eye Exam: bilateral normal Ears, Nose, Throat: normal ENT inspection Neck: non-tender, full range of motion Respiratory: no respiratory distress Cardiovascular/Chest: regular rate, rhythm Gastrointestinal/Abdominal: non tender, soft Rectal Exam: deferred Back Exam: normal inspection Neurologic: no motor/sensory deficits Skin Exam: normal color Progress - Progress Progress: 06/24/20 11:15 A/P-Generalized Headache-iv bolus cbc cmp lipase ua uhcg ct head reglan benadryl decadron sumatriptan reassess - Results/Orders Results/Orders: On reassessment pt feeling improved with ED treatment Laboratory Tests 06/24/20 06/24/20 06/24/20 11:20 11:28 11:28 WBC 6.2 RBC 5.10 Hgb 14.4 Hct 42.0 MCV 82.2 MCH 28.1 MCHC 34.2 RDW 15.2 H Plt Count 189 MPV 8.1 Absolute Neuts (auto) 4.30 Absolute Lymphs (auto) 1.60 Absolute Monos (auto) 0.20 Absolute Eos (auto) 0.00 Absolute Basos (auto) 0.00 Neutrophils % 69.6 Lymphocytes % 26.2 Monocytes % 3.1 Eosinophils % 0.6 L Basophils % 0.5 Sodium 139 Potassium 3.5 L Chloride 106 Carbon Dioxide 23 Anion Gap 13.5 BUN 10 Creatinine 0.77 BUN/Creatinine Ratio 13.0 Random Glucose 90 Serum Osmolality 276.1 Calcium 9.5 Total Bilirubin 0.6 AST 17 ALT 14 Alkaline Phosphatase 46 Serum Total Protein 8.1 Albumin 4.8 Globulin 3.3 Albumin/Globulin Ratio 1.5 Lipase 32 Urine Color Yellow Urine Appearance Clear Urine pH 5.5 Ur Specific [place] 1.020 Urine Protein Negative Urine Glucose (UA) Negative Urine Ketones Negative Urine Blood Trace-intact H Urine Nitrite Negative Urine Bilirubin Negative Urine Urobilinogen 0.2 Ur Leukocyte Esterase Negative Urine RBC 1-3 Urine WBC 0-1 Ur Epithelial Cells 3-5 Amorphous Sediment 2+ Urine Bacteria 1+ Urine Mucus Large Urine HCG, Qual 06/24/20 11:28 WBC RBC Hgb Hct MCV MCH MCHC RDW Plt Count MPV Absolute Neuts (auto) Absolute Lymphs (auto) Absolute Monos (auto) Absolute Eos (auto) Absolute Basos (auto) Neutrophils % Lymphocytes % Monocytes % Eosinophils % Basophils % Sodium Potassium Chloride Carbon Dioxide Anion Gap BUN Creatinine BUN/Creatinine Ratio Random Glucose Serum Osmolality Calcium Total Bilirubin AST ALT Alkaline Phosphatase Serum Total Protein Albumin Globulin Albumin/Globulin Ratio Lipase Urine Color Urine Appearance Urine pH Ur Specific [place] Urine Protein Urine Glucose (UA) Urine Ketones Urine Blood Urine Nitrite Urine Bilirubin Urine Urobilinogen Ur Leukocyte Esterase Urine RBC Urine WBC Ur Epithelial Cells Amorphous Sediment Urine Bacteria Urine Mucus Urine HCG, Qual Negative EXAM DESCRIPTION: Head CLINICAL HISTORY: 24 years Female, headache COMPARISON: None. TECHNIQUE: Axial images obtained from the skull base to the vertex without intravenous contrast with images. Coronal and sagittal reformations provided. This exam was performed according to our departmental dose- optimization program, which includes automated exposure control, adjustment of the mA and/or kV according to patient size and/or use of iterative reconstruction technique. Time Last Seen Well (If known) for Code Stroke: n/a FINDINGS: Brain Parenchyma, ventricles, meninges, and extra-axial spaces: Normal ventricles and sulci. Normal attenuation of brain parenchyma. No acute intra cranial hemorrhage. No abnormal extra-axial fluid collection. Vascular: Normal. Calvarium, paranasal sinuses, mastoids, and orbits: Calvarium intact. Visualized paranasal sinuses and mastoid air cells clear. Orbits unremarkable. IMPRESSION: 1. No acute intracranial abnormality. Electronically signed by: Alvarado Phillips MD 06/24/2020 12:52 PM CDT Departure - Departure Clinical Impression: Generalized headache, Nausea Time of Disposition: 13:07 Disposition: Discharge to Home or Self Care Condition: Good Departure Forms: ED Discharge - Pt. Copy, Patient Portal Self Enrollment Instructions: DI for Headache Referrals: Jah Vital MD [Primary Care Provider] - 1-2 Days Prescriptions: Ibuprofen 600 mg PO Q6H PRN #20 tab PRN Reason: Pain Acetaminophen [Tylenol] 650 mg PO Q6H PRN #30 tab PRN Reason: Pain Ondansetron Tab [Zofran Tab] 4 mg PO TID PRN 5 Days #15 tab PRN Reason: Nausea Home Medications: Ambulatory Orders Norethindrone Acetate-Ethinyl [Lo Loestrin Fe 1 mg-10 Mcg / 10 Mcg] 1 tablet PO DAILY 10/11/19 Ondansetron Tab [Zofran Tab] 4 mg PO TID #12 tab 12/27/19 Acetaminophen [Tylenol] 650 mg PO Q6H PRN #30 tab 06/24/20 Ibuprofen 600 mg PO Q6H PRN #20 tab 06/24/20 Ondansetron Tab [Zofran Tab] 4 mg PO TID PRN 5 Days #15 tab 06/24/20
[2020-06-24] MEDS: SODIUM CHLORIDE 0.9% 1000ML 1,000 ML IVS ONE (11:29)
[2020-06-24] MEDS: SUMAtriptan SUCCINATE INJ 6 MG/0.5 ML VIAL SUBCU ONE (11:29)
[2020-06-24] MEDS: DEXAMETHASONE INJ 10 MG/ML VIAL IV ONE (11:30)
[2020-06-24] MEDS: METOCLOPRAMIDE HCL INJ 10 MG/2 ML VIAL IV ONE (11:30)
[2020-06-24] MEDS: diphenhydrAMINE HCL 50 MG/ML VIAL IV ONE (11:30)
--- NOTE | 2020-06-24 12:54 | CT ---
EXAM DESCRIPTION: Head CLINICAL HISTORY: 24 years Female, headache COMPARISON: None. TECHNIQUE: Axial images obtained from the skull base to the vertex without intravenous contrast with images. Coronal and sagittal reformations provided. This exam was performed according to our departmental dose-optimization program, which includes automated exposure control, adjustment of the mA and/or kV according to patient size and/or use of iterative reconstruction technique. Time Last Seen Well (If known) for Code Stroke: n/a FINDINGS: Brain Parenchyma, ventricles, meninges, and extra-axial spaces: Normal ventricles and sulci. Normal attenuation of brain parenchyma. No acute intracranial hemorrhage. No abnormal extra-axial fluid collection. Vascular: Normal. Calvarium, paranasal sinuses, mastoids, and orbits: Calvarium intact. Visualized paranasal sinuses and mastoid air cells clear. Orbits unremarkable. IMPRESSION: 1. No acute intracranial abnormality. Electronically signed by: Alvarado Phillips MD 06/24/2020 12:52 PM CDT [facility]
[2020-06-24 13:22] VITALS: BP 138/90; TEMP 98; O2SAT 96
== END 2020-06-24 13:22 | disposition home or self-care (01) ==
LOC: ER 10:27
DX: R51 Headache (principal); R11.0 Nausea; J45.909 Unspecified asthma, uncomplicated; K21.9 Gastro-esophageal reflux disease without esophagitis; I10 Essential (primary) hypertension; Z88.8 Allergy status to other drugs, medicaments and biological substances; Z79.899 Other long term (current) drug therapy; R11.2 Nausea with vomiting, unspecified
CPT/HCPCS: 36415; 70450; 80053; 81001; 81025; 83690; 85025; J1100; J1200; J2765; J3030; J7030

== ENCOUNTER → 2020-07-13 | Outpatient (CLI) | payer OTHER ==
--- NOTE | 2020-07-14 14:22 | US ---
EXAM DESCRIPTION: Renal: Ultrasound. CLINICAL HISTORY: 24 years Female ACUTE PYELONEPHRITIS COMPARISON: None TECHNIQUE: Transcutaneous scanning: Two-dimensional and Doppler modes. FINDINGS: Right kidney measures 10.1 x 3.9 x 4.3 cm; volume 88.1 ml. Mid-renal cortical thickness normal . Normal cortical echogenicity. No hydronephrosis No echogenic stones. Smooth contour of the kidney with no perinephric fluid. Normal vascularity. Proximal ureter not seen.. Left kidney measures 10.5 x 5.6 x 4.6 cm; volume 142 ml. Mid-renal cortical thickness normal. Normal cortical echogenicity. No hydronephrosis. No echogenic stones. Smooth contour of the kidney with no perinephric fluid. Normal vascularity.. Proximal ureter not seen.. Urinary bladder was visualized. Prevoid volume 17.6 mL. Ureteral jet in the bladder not seen by color Doppler. Patient did not void. Abdominal aorta: Normal caliber from the proximal segment of the distal bifurcation. IMPRESSION: 1. Normal ultrasound of the kidneys. Urinary bladder was visualized. Normal caliber of the abdominal aorta. Electronically signed by: Marck Dowd MD 07/14/2020 2:20 PM CDT
== END ==
LOC: US 13:15
PROVIDERS: ATTEND Family Medicine
DX: N10 Acute pyelonephritis (principal)